=== PATIENT | male | born 1975 | race Caucasian/White ===

== ENCOUNTER 2021-11-11 16:03 | Emergency (ER) | payer OTHER, BC ==
[2021-11-11] MEDS ORDERED: Sodium Chloride 0.9% 1,000 ML IV ONE (16:07)
[2021-11-11] MEDS ORDERED: Ondansetron 4 MG/2 ML SDV IVPUSH ONE (16:10)
[2021-11-11] MEDS ORDERED: Morphine 4 MG/ML VIAL IVPUSH ONE (16:10)
[2021-11-11 16:40] LABS: BLOOD UREA NITROGEN,BUN 15 mg/dL (7.0-18.0); CHLORIDE,CL 104 mmol/L (98-107); ESTIMATED GFR 95 mL/min (>60); GLUCOSE RANDOM 119 mg/dL (74-106); POTASSIUM,K 3.6 mmol/L (3.5-5.1); SODIUM,NA 148 mmol/L (136-148)
[2021-11-11] MEDS ORDERED: Iopamidol 755 MG/ML 500 ML Multipack Bottle IVPUSH STA (17:00)
== END 2021-11-11 17:26 | disposition home or self-care (01) ==
LOC: MW.ED 16:03
DX: R07.89 Other chest pain (principal); M54.2 Cervicalgia; V49.40XA Driver injured in collision with unspecified motor vehicles in traffic accident, initial encounter; Y92.410 Unspecified street and highway as the place of occurrence of the external cause
CPT/HCPCS: 36415; 70450; 71260; 72125; 74177; 80053; 80307; 83735; 84484; 85025; 85610; 85730; 96361; 96374; 96375; 99284; J2270; J2405; J7030; Q9967; 72128-26; 72131-26; 99285

== ENCOUNTER 2024-10-22 13:46 | Emergency (ER) | payer BC ==
[2024-10-22] MEDS ORDERED: Sodium Chloride 0.9% 10 ML Syringe FLUSH PRN (14:19)
[2024-10-22] MEDS ORDERED: Sodium Chloride 0.9% 2.5 ML Syringe FLUSH PRN (14:19)
[2024-10-22 14:38] LABS: BASOPHILS ABSOLUTE AUTO 0.04 K/uL (0.00-0.20); BASOPHILS PERCENT AUTO 0.4 % (0.0-1.0); EOSINOPHILS ABSOLUTE AUTO 0.23 K/uL (0.00-0.45); EOSINOPHILS PERCENT AUTO 2.1 % (0.0-6.0); IMMATURE GRAN ABSOLUTE AUTO 0.06 K/uL (0.00-0.05); IMMATURE GRAN PERCENT AUTO 0.5 % (0.0-0.4); LYMPHOCYTES ABSOLUTE AUTO 2.61 K/uL (1.00-4.80); LYMPHOCYTES PERCENT AUTO 23.5 % (24.0-44.0); MEAN PLATELET VOLUME 10.6 fL (9.4-12.4); MONOCYTES ABSOLUTE AUTO 0.91 K/uL (0.00-0.80); MONOCYTES PERCENT AUTO 8.2 % (0.0-8.0); NEUTROPHILS ABSOLUTE AUTO 7.27 K/uL (1.80-7.70); NEUTROPHILS PERCENT AUTO 65.3 % (41.0-71.0); NRBC ABSOLUTE 0.00 K/uL (0.00-0.02); NRBC PERCENT 0.0 /100WBC (0.0-0.2); PLATELET COUNT,PLT 217 K/uL (150-400); RED BLOOD CELL COUNT 5.34 M/uL (4.52-5.90); WHITE BLOOD CELL COUNT,WBC 11.12 K/uL (3.9-11.3)
[2024-10-22 14:49] LABS: INR 0.97 (0.86-1.11); PTT,PARTIAL THROMBOPLSTIN TIME 24.0 SEC (23.9-30.7)
[2024-10-22 15:04] LABS: A/G RATIO 1.2 (0.9-1.6); ALANINE AMINOTRANSFERASE,ALT 34.0 IU/L (14-63); ASPARTATE AMNIOTRANSFERASE,AST 19.0 IU/L (15-37); BILIRUBIN TOTAL 0.4 mg/dL (0.2-1.0); BLOOD UREA NITROGEN,BUN 28.0 mg/dL (7.0-18.0); CARBON DIOXIDE,CO2 29.4 mmol/L (21.0-32.0); CHLORIDE,CL 103.0 mmol/L (98-107); CREATININE 1.0 mg/dL (0.8-1.3); EST CRCL DRUG DOSING (CG) 84.46 mL/min; GLUCOSE RANDOM 177.0 mg/dL (74-106); POTASSIUM,K 3.7 mmol/L (3.5-5.1); PROTEIN TOTAL,TP 6.6 g/dL (6.4-8.2); SODIUM,NA 140.0 mmol/L (136-148)
[2024-10-22 15:05] LABS: ESTIMATED GFR 93.0 mL/min (>60)
[2024-10-22] MEDS: Iopamidol 755 MG/ML 500 ML Multipack Bottle IVPUSH STA (16:14)
[2024-10-22] MEDS ORDERED: Naloxone 0.4 MG/ML SDV IVPUSH PRN ×2 (16:47→17:43)
[2024-10-22] MEDS: fentaNYL 50 MCG/ML SDV IVPUSH ONE (17:50)
[2024-10-22] MEDS: LORazepam 2 MG/ML SDV IVPUSH ONE (17:50)
[2024-10-22] MEDS: Gadoteridol 279.3 MG/ML 20 ML SDV IVPUSH ONE (18:37)
[2024-10-22] MEDS: Ketorolac 30 MG/ML SDV IVPUSH ONE (20:15)
[2024-10-22] MEDS: Ondansetron 4 MG/2 ML SDV IVPUSH ONE (20:22)
== END 2024-10-22 20:43 | disposition home or self-care (01) ==
LOC: MW.ED 13:46
DX: M25.512 Pain in left shoulder (principal); M54.10 Radiculopathy, site unspecified; E11.9 Type 2 diabetes mellitus without complications; Z79.899 Other long term (current) drug therapy
CPT/HCPCS: 36415; 71260; 72128; 72156; 72157; 73030; 80053; 83690; 83735; 84484; 85025; 85610; 85730; 86140; 86308; 96374; 96375; 96376; 99284; J1100; J1885; J2060; J2405; J3010; J7030; Q9967; 99283; J1171

== ENCOUNTER 2024-10-26 21:18 | Emergency (ER) | payer BC ==
[2024-10-26] MEDS ORDERED: diphenhydrAMINE 50 MG/ML SDV IM ONE (22:09)
== END 2024-10-26 22:43 | disposition home or self-care (01) ==
LOC: MW.ED 21:18
DX: M54.12 Radiculopathy, cervical region (principal); E11.9 Type 2 diabetes mellitus without complications; Z79.899 Other long term (current) drug therapy
CPT/HCPCS: 96372; 99283; A9270; J1100; J1171; J1630